=== PATIENT | male | born 1970 | race Caucasian/White ===

== ENCOUNTER 2016-09-29 13:35 | Emergency (ER) | payer BC ==
[~2016-09-29] VITALS: Ht 160 cm; Wt 78.9 kg
[2016-09-29 13:38] VITALS: Ht 160 cm; Wt 78.9 kg
--- NOTE | 2016-09-29 14:21 | EN ---
Date/Time of Note Date/Time of Note DATE: 09/29/16 TIME: 14:18 ER Progress Note Medical screening exam performed. Patient complaining of fever for 1 week with T-max 104-105, associated with night sweats. Patient will need further workup , which he is sent to ED to for further evaluation. NATALIE MAXWELL NP Sep 29, 2016 14:21
[2016-09-29] MEDS ORDERED: KETOROLAC 30 MG INJ IM STA (14:47)
[2016-09-29] MEDS ORDERED: AZIT500T3 PO (14:49)
[2016-09-29] MEDS ORDERED: OXYC-279 PO (14:49)
[2016-09-29 15:00] VITALS: BP 122/60; PULSE 76; RESP 18; TEMP 98.9
--- NOTE | 2016-09-29 19:55 | ERD ---
ER Documentation Chief Complaint Date/Time DATE: 09/29/16 TIME: 19:53 Chief Complaint fever,st x 1 week HPI 46-year-old man here with his with complaints of cough, congestion, body aches 1 week and 3 days of increasing sore throat. He has had no changes in his voice, no recent travel or sick contacts, no recent antibiotic use. Patient denies abdominal pain, no vomiting or diarrhea, no complaints of chest pain or shortness of breath. ROS All systems reviewed and are negative except as per history of present illness. Medications Home Meds Active Scripts Azithromycin* (Zithromax*) 500 Mg Tablet, 500 MG PO DAILY for 5 Days, TAB Prov:DASHA FIGUEREDO MD 09/29/16 Oxycodone HCl/Acetaminophen (Percocet 5-325 mg Tablet) 1 Each Tablet, 1 EACH PO TID for PAIN, #12 TAB Prov:DASHA FIGUEREDO MD 09/29/16 Allergies Allergies: Coded Allergies: No Known Allergy (Unverified , 09/29/16) PMhx/Soc None Medical and Surgical Hx: pt denies Medical Hx, pt denies Surgical Hx Hx Alcohol Use: No Hx Substance Use: No Hx Tobacco Use: No Smoking Status: Never smoker FmHx Family History: No diabetes Physical Exam Vitals Vital Signs Date Time Temp Pulse Resp B/P Pulse Ox O2 Delivery O2 Flow Rate FiO2 09/29/16 15:00 98.9 76 18 122/60 99 09/29/16 13:38 99.0 82 18 134/85 99 Physical Exam GENERAL: Well-developed, well-nourished, well-hydrated, in no apparent distress , looks nontoxic in appearance. Patient was afebrile HEENT: Positive nasal congestion, moist mucous membranes, pink conjunctiva, no cervical spine tenderness or step-off deformities, no goiter, no jaundice or icterus, extraocular movements intact without pain. No submandibular induration , positive bilateral pharyngeal erythema with exudates, uvula is midline NEURO: Alert and oriented 3, cranial nerves II through XII intact bilaterally, pupils equal round reactive to light, no focal deficits or facial asymmetry, sensation intact distally Strength 5/5 in upper and lower extremities bilaterally CARDIAC: Regular rate and rhythm, no murmurs rubs or gallops LUNGS: Clear bilaterally no wheezing crackles or stridor ABDOMEN: Soft nontender, no guarding, no rigidity, no rebound, no psoas sign no obturator sign. Normoactive bowel sounds SKIN: Warm and dry to touch, no abrasions, contusions, or hematomas, no lacerations, no ecchymosis, no target lesions, and without ulcers EXTREMITIES: No clubbing cyanosis or edema, calves are bilaterally symmetrical, no Homans sign, no popliteal cord sign. Distal pulses equal and bilateral PSYCH: Normal affect without agitation or irritability Results 24 hrs Current Medications Medications (Trade) Dose Ordered Sig/Mati Route PRN Reason Start Time Stop Time Status Last Admin Dose Admin Ketorolac Tromethamine (Toradol) 30 mg ONCE STAT IM 09/29/16 14:47 09/29/16 15:07 DC 09/29/16 15:11 Procedures/MDM I administered Toradol 30 mg intramuscular injection for patient's symptoms. His vital signs are normal here and he has URI symptoms with a superimposed bacterial pharyngitis, I will be treating him as an outpatient with 5 days of azithromycin. Differential diagnoses considered, included but not limited to acute coronary syndrome, pulmonary embolism, aortic dissection, abdominal aortic aneurysm, sepsis, stroke, meningitis, encephalitis, pneumonia, appendicitis, cholecystitis , bowel obstruction, pyelonephritis, nephrolithiasis, cystitis, as well as metabolic, hematologic, and electrolyte abnormalities. As well as abscess, cellulitis, fractures, and dislocations. Patient feels much better at this time, and vital signs are normal, symptoms have improved. I did give strict instructions to return to the ED if symptoms continue or worsen, patient will otherwise follow-up with primary care physician. Patient understood instructions and agreed to plan. Departure Diagnosis: Primary Impression: Strep throat Additional Impression: URI (upper respiratory infection) URI type: acute nasopharyngitis (common cold) Qualified Code: J00 - Acute nasopharyngitis Condition: Good Patient Instructions: Strep Throat, Uri, Viral, No Abx (Adult) DASHA FIGUEREDO MD Sep 29, 2016 19:55
== END 2016-09-29 15:00 | disposition home or self-care (01) ==
LOC: FTE 13:35
DX: J02.0 Streptococcal pharyngitis (principal)
CPT/HCPCS: 96372; J1885